=== PATIENT | female | born 1945 | race Caucasian/White ===

== ENCOUNTER 2016-10-30 17:16 | Emergency (ER) | payer MEDICARE, BC ==
[2016-10-30 17:48] LABS: BASOPHILS 0.1 % (0-2); EOSINOPHILS 0.1 % (0-7); HEMATOCRIT 37.6 % (36.0-48.0); HEMOGLOBIN 12.6 g/dL (12-16); IMMATURE GRANULOCYTES 0.4 % (0-5); LYMPHOCYTES 12.2 % (15-50); MCH 31.8 pg (26.0-34.0); MCHC 33.5 g/dL (31.0-37.0); MCV 94.9 fL (80.0-100.0); MEAN PLATELET VOLUME 9.5 fL (7.4-10.4); MONOCYTES 3.5 % (2-11); NEUTROPHILS 83.7 % (40-80); PLATELET COUNT 283 10x3/uL (130-400); RBC 3.96 10x6/uL (4.00-5.40); RDW 13.9 % (11.5-14.5); WBC 10.5 10x3/uL (4.8-10.8)
[2016-10-30 18:24] LABS: ALBUMIN 3.8 g/dL (3.4-5.0); ANION GAP 17.4 mmol/L (8-16); BILIRUBIN - TOTAL 0.7 mg/dL (0.2-1.3); CALCIUM 9.1 mg/dL (8.5-10.1); CARBON DIOXIDE 24.4 mmol/L (21.0-32.0); CREATININE - SERUM 0.9 mg/dL (0.6-1.3); POTASSIUM - SERUM 4.8 mmol/L (3.5-5.1); PROTEIN - SERUM 6.9 g/dL (6.4-8.2)
== END 2016-10-30 19:20 | disposition left against medical advice (07) ==
LOC: D.ER 17:16
PROVIDERS: Emergency Medicine
DX: R10.30 Lower abdominal pain, unspecified (principal)

== ENCOUNTER 2017-08-28 08:00 | Outpatient (CLI) | payer MEDICARE, BC | END 2017-08-28 09:00 | disposition home or self-care (01) | LOC: D.MAMMO 08:00 | DX: Z12.31 Encounter for screening mammogram for malignant neoplasm of breast (principal) ==

== ENCOUNTER 2018-05-12 11:33 | Outpatient (CLI) | payer MEDICARE, BC ==
[~2018-05-12] VITALS: Ht 162.6 cm; Wt 65.9 kg
--- NOTE | ~2018-05-12 | HEMODYNAMI ---
PATIENT:RHIANNON SMITH MEDICAL RECORD: [id number] : 45 LOCATION:[facility] ADMISSION DATE: 05/12/18 Generatedon:05/12/201814:44 Patient name: RHIANNON SMITH Patient #: [id number] SSN: DO B: 1945 Date of study: 05/12/2018 Page: Of Hemodynamic Procedure Report Patient Data Patient Demographics Procedure consent was obtained First Name: RHIANNON Gender: Female Last Name: LUIS : 1945 Middle Initial: L Age: 73 year(s) Patient #: [id number] Race: Unknown Additional ID: [id number] Contact details Address: [address] [place] [address] State: [place] City: [facility] Zip code: [address] Past Medical History Allergies Allergen Reaction Date Comments Reported Other allergy 05/12/2018 LISINOPRIL, PROCAINE Admission Admission Data Admission Date: 05/12/2018 Admission Time: 11:33 Height (in.): 64 BSA: 1.78 (m2) Height (cm.): 162.56 BMI: 27.46 (kg/m2) Weight (lbs.): 160 Weight (kg.): 72.57 Lab Results Lab Result Date: 05/12/2018 Lab Result Time: 0:00 Biochemistry Name Units Result Min Max BUN mg/dl 12 --(-*--)-- 7 18 Creatinine mg/dl 1 --(--*-)-- 0.6 1.3 CBC Name Units Result Min Max Hematocrit % 37.4 *-(----)-- 42 54 Hemoglobin g/dl 12.4 *-(----)-- 13.5 17.5 Procedure Procedure Types Cath Procedure Diagnostic Procedure C [facility] w/Coronaries Aortic Root Angiography Sedation Charges Moderate Sedation up to 15 minutes Peripheral Cath Diagnostic Procedure Polytechnic Teacher Peripheral Procedures Fonru-Cgvlmcw-Knq-Off Procedure Description Procedure Date Procedure Date: 05/12/2018 Procedure Start Time: 14:23 Procedure End Time: 14:38 Procedure Staff Name Function Nick Monzon MD Performing Physician Elysia Sahni RT Monitor Luis Capone RN Nurse Robby Rascon RT Scrub Procedure Data Cath Procedure Fluoroscopy Diagnostic fluoroscopy Total fluoroscopy Time: 3.4 time: 3.4 min min Diagnostic fluoroscopy Total fluoroscopy dose: 223 dose: 223 mGy mGy Contrast Material Contrast Material Type Amount (ml) Isovue 300 138 Entry Location Entry Primary Successful Side Size Upsize Upsize Entry Closure Succes sful Closure Location (Fr) 1 (Fr) 2 (Fr) Remarks Device Remarks Femoral Right 5 Fr Exoseal artery Estimated blood loss: 5 ml Diagnostic catheters Device Type Used For End Catheter Placement MULTIPACK JL 4.0 5Fr Procedure catheter MULTIPACK 3DRC 5Fr Procedure catheter MULTIPACK Pigtail 5 Fr Procedure catheter Procedure Complications No complications Procedure Medications Medication Administration Route Dosage Oxygen etCO2 Nasal cannula 2 l/min Heparin Flush Bag added to field 2 bags (1000units/500ml NS) 0.9% NaCl I.V. 100 ml/hr Lidocaine 2% added to field 20 Fentanyl I.V. 50 mcg Versed I.V. 1 mg Fentanyl I.V. 50 mcg Versed I.V. 1 mg Hemodynamics Rest BSA: 1.78 (m2) HGB: 12.4 (g/dl) O2 Consumption: Estimated: 159.9 (ml/min) O2 Con sumption indexed: Estimated:89.83 (ml/min/m) Heart Rate: 66 (bpm) Pressure Samples Time Site Value (mmHg) Purpose Heart Use Rate(bpm) 14:30 LV 156/22,20 Snapshot 89 Gradients Valve Time Site Site Mean SEP/DFP Peak To Heart Use 1 2 (mmHg) (sec/min) Peak Rate (mmHg) (bpm) Aortic 14:31 LV AO 96 Snapshots Pre Cath Intra NCS Post Cath Vital Signs Time Heart Resp SPO2 etCO2 NIBP (mmHg) Rhythm Pain Sedation Rate (ipm) (%) (mmHg) Status Level (bpm) 14:08:26 83 16 97 0 141/83(111) NSR 0 (11) 10(A) , No pain 14:12:37 74 16 92 0 139/83(116) NSR 0 (11) 10(A) , No pain 14:16:51 73 16 97 0 145/85(120) NSR 0 (11) 10(A) , No pain 14:21:01 72 17 96 0 142/94(128) NSR 0 (11) 10(A) , No pain 14:25:11 70 16 97 0 153/88(116) NSR 0 (11) 9(A) , No pain 14:29:21 101 16 97 0 154/95(128) NSR 0 (11) 9(A) , No pain 14:33:31 99 17 97 0 140/85(108) NSR 0 (11) 9(A) , No pain 14:37:39 74 16 94 0 142/89(115) NSR 0 (11) 9(A) , No pain Medications Time Medication Route Dose Verified Delivered Reason Notes Eff ectiveness by by 14:15:58 Oxygen etCO2 2 Nick Luis Per Nasal l/min [facility] Justin Capone RN physician cannula 14:16:16 Heparin Flush added 2 Nick Luis used for Bag to bags [facility] Justin Capone RN procedure (1000units/500ml field PRATER NS) 14:16:28 0.9% NaCl I.V. 100 Nick Luis Per ml/hr St Justin Capone RN physician 14:16:38 Lidocaine 2% added 20ml Nick Luis for local to vial [facility] Justin Capone RN anesthetic field 14:19:24 Fentanyl I.V. [address] [facility] Justin Capone RN sedation 14:19:30 Versed I.V. 1 mg Nick Smith for [facility] Justin Capone RN sedation 14:23:24 Fentanyl I.V. [address] [facility] Justin Capone RN sedation 14:23:29 Versed I.V. 1 [address] [facility] Justin Capone RN sedation Procedure Log Time Note 13:40:02 Luis Capone RN sent for patient. Start room use. 13:50:03 Time tracking: Regular hours (M-F 7:00 - 5:00) 13:50:07 Plan of Care:Hemodynamics will remain stable., Cardiac rhythm will remain stable., Comfort level will be maintained., Respiratory function will remain adequate., Patient/ family verbilizes understanding of procedure., Procedure tolerated without complication., Recovers from procedure without complications.. 13:58:43 Patient Height : 64 inches 13:58:47 Patient Weight : 160 lbs 13:59:07 Patient allergic to Other allergyLISINOPRIL, PROCAINE 14:05:14 Patient received from Pre/Post Procedure Room to CCL 3 Alert and oriented. Tansferred to table in Supine position. 14:05:15 Warm blankets applied, and camille hugger turned on for patient comfort. 14:05:15 Correct patient and procedure confirmed by team. 14:05:16 Signed procedure consent form obtained from patient. 14:05:17 ECG and BP/O2 sat monitors applied to patient. 14:07:24 Vital chart was started 14:09:43 Baseline sample Acquired. 14:09:51 Rhythm: sinus rhythm 14:09:53 Baseline sample Acquired. 14:09:53 Full Disclosure recording started 14:10:15 H&P Date Dictated: 05/08/2018 Within 30 days and on chart.. 14:10:16 Pre-procedure instructions explained to patient. 14:10:16 Pre-op teaching completed and patient verbalized understanding. 14:10:17 Family in waiting room. 14:10:20 Is patient on blood thinner?No 14:10:22 Patient diabetic? No. 14:10:24 Patient not . Patient is over age 55. 14:10:26 Previous problem with sedation/anesthesia? No ? 14:10:27 Snore? Yes 14:10:27 Sleep apnea? No 14:10:28 Deviated septum? No 14:10:29 Opens mouth fully? Yes 14:10:30 Sticks out tongue? Yes 14:10:32 Airway obstruction? No ? 14:10:33 Dentures? No ? 14:10:36 Pre procedure: right dorsailis pedis pulse 2+ Normal; easily identifiable; not easily obliterated 14:10:39 Pre procedure: left dorsailis pedis pulse 2+ Normal; easily identifiable; not easily obliterated 14:10:41 Patient pain scale 0/10 ?. 14:10:45 IV patent on arrival in right hand with 0.9% NaCl at [facility]. 14:12:07 Lab Result : BUN 12 mg/dl 14:12:07 Lab Result : Creatinine 1 mg/dl 14:12:07 Lab Result : Hemoglobin 12.4 g/dl 14:12:07 Lab Result : Hematocrit 37.4 % 14:12:10 Lab results completed and on chart. 14:12:16 Bilateral groins area was prepped with chlora-prep and draped in sterile fashion 14:12:18 Alarms reviewed by R. N. 14:12:18 Sharps counted by scrub and verified by R.N. 14:12:21 Use device set Femoral Dx 14:12:22 ACIST Syringe (35097) opened to sterile field. 14:12:23 Bag Decanter (2002S) opened to sterile field. 14:12:24 ACIST Hand Control (69091) opened to sterile field. 14:12:24 ACIST Manifold (57902) opened to sterile field. 14:12:25 Tegaderm 4 x 4 (1626W) opened to sterile field. 14:12:26 Medline Cath Pack ([id number]) opened to sterile field. 14:12:27 DIAGNOSTIC WIRE .035 260cm J wire (662185) opened to sterile field. 14:12:28 DIAGNOSTIC Multipack 5Fr catheter set ([id number]) opened to sterile field. 14:12:29 SHEATH 5FR Clyde (EKK071) opened to sterile field. 14:15:58 Oxygen 2 l/min etCO2 Nasal cannula was administered by Luis Capone RN; Per physician; 14:16:16 Heparin Flush Bag (1000units/500ml NS) 2 bags added to field was administered by Luis Capone RN; used for procedure; 14:16:28 0.9% NaCl 100 ml/hr I.V. was administered by Luis Capone RN; Per physician; 14:16:38 Lidocaine 2% 20ml vial added to field was administered by uLis Capone RN; for local anesthetic; 14:18:37 --------ALL STOP TIME OUT------ 14:18:38 Final Timeout: patient, procedure, and site verified with staff and physician. All members of the team are in agreement. 14:18:39 Bilateral groins site verified by team. 14:18:42 Maximum allowable Isovue 300 dose 300ml. Physician notified. (300ml for normal creatinines. For patients with creatinine of 1.7 or higher multiply weight(kg) x 5 divided by creatinine.) 14:18:46 Fire Safety Assessment: A--An alcohol-based skin anteseptic being used preoperatively., C--Open oxygen or nitrous oxide is being used., D--An ESU, laser, or fiber-optic light is being used. 14:18:50 Physical assessment completed. ASA score P 2 - A patient with mild systemic disease as per Nick Monzon MD. 14:18:54 Sedation plan: IV Moderate Sedation Medication:Versed, Fentanyl 14:19:24 Fentanyl 50 mcg I.V. was administered by Luis Capone RN; for sedation; 14:19:30 Versed 1 mg I.V. was administered by Luis Capone RN; for sedation; 14:23:10 Zero performed for pressure channel P1 14:23:18 Procedure started. 14:23:24 Fentanyl 50 mcg I.V. was administered by Luis Capone RN; for sedation; 14::29 Versed 1 mg I.V. was administered by Luis Capone RN; for sedation; 14::31 Local anesthetic to right femoral artery with Lidocaine 2% by Nick Monzon MD.INITIAL ACCESS ONLY 14:24:14 A 5 Fr sheath was inserted into the Right Femoral artery 14:24:20 A MULTIPACK JL 4.0 5Fr catheter was advanced over the wire and used for Procedure. 14:25:42 LCA angiography performed. 14:26:25 Catheter exchanged over wire. 14:26:43 A MULTIPACK 3DRC 5Fr catheter was advanced over the wire and used for Procedure. 14:27:41 RCA angiography performed. 14:27:52 Catheter exchanged over wire. 14:28:50 Procedure type changed to Cath procedure, Diagnostic procedure, LHC, LHC w/Coronaries, Aortic Root Angiography, Sedation Charges, Moderate Sedation up to 15 minutes, Peripheral Cath Diagnostic Procedure, Polytechnic Teacher Peripheral Procedures, Initq-Rugxoua-Cel-Off 14:28:59 A MULTIPACK Pigtail 5 Fr catheter was advanced over the wire and used for Procedure. 14:30:31 LV gram done using HAYNES 14:30:35 Injector settings: Ml/sec: 10, Volume: 20, 14:30:48 LV hemodynamics recorded. 14:31:10 EF : 40 % 14:32:08 Aortic Root visualized 14:32:20 PIGTAIL PULLED DOWN FOR AFRO 14:32:31 Abdominal angiogram w/ runoff was performed. 14:32:50 Left leg runoff performed. 14:33:03 Right leg runoff performed. 14:33:09 Catheter removed. 14:33:46 EXOSEAL 5Fr (EX500) opened to sterile field. 14:34:07 Sheath removed intact; hemostasis achieved with Exoseal to the Right Femoral artery. 14:34:09 Procedure ended.(Physican Out) 14:34:39 Fluoroscopy time 03.40 minutes. 14:34:46 Fluoroscopy dose: 223 mGy 14:34:46 Flurop Dose total: 223 14:34:49 Contrast amount:Isovue 300 138ml. 14:34:51 Sharps counted by scrub and verified by R.N. 14:34:55 Post-op/insertion site Right Femoral artery dressed using a 4 x 4 and Tegaderm. 14:35:27 Post-procedure physical assessment completed. ASA score P 2 - A patient with mild systemic disease as per Nick Monzon MD. 14:35:30 Post procedure rhythm: unchanged. 14:35:33 Estimated blood loss: 5 ml 14:35:34 Post procedure instruction explained to patient.Patient verbalizes understanding. 14:35:35 Patient needs reinforcement of post procedure teaching. 14:38:42 Procedure and supply charges have been captured, reviewed, submitted and are correct. 14:38:44 Procedure Complication : No complications 14:38:46 Vital chart was stopped 14:38:46 See physician's report for complete and final results. 14:38:48 Report given to Pre/Post Procedure Room. 14:38:50 Patient transfered to Pre/Post Procedure Room with Bed. 14:38:52 Procedure ended. 14:38:52 Full Disclosure recording stopped 14:38:56 End room use (Document Last) Device Usage Item Name Manufacture Quantity Catalog Hospital Part Current Minimal L ot# / Number Charge Number Stock Stock Serial# Code ACIST Acist 1 38573 555675 039010 110970 20 Syringe Medical (49552) Systems Inc Bag Microtek 1 304399 37363 503590 5 Decanter Medical Inc. () ACIST Hand Acist 1 04310 599424 659596 146561 5 Control Medical (24120) Systems Inc ACIST Acist 1 41977 295762 103271 967312 5 Manifold Medical (87230) Systems Inc Tegaderm 4 3M 1 1626W 263921 143766 540027 5 x 4 (1626W) Medline Medline 1 [id number] 754397 42108 529355 5 Cath Pack ([id number]) DIAGNOSTIC St Luis M 1 859516 826350 648498 651776 30 WIRE .035 260cm J wire (309119) DIAGNOSTIC Cardinal 1 CK6159 405345 51963 139722 30 Multipack Health 5Fr catheter set (HW9496) SHEATH 5FR Terumo 1 JUJ153 215616 671576 485391 5 Clyde (NPW360) MULTIPACK Cardinal 1 473930 5 JL 4.0 5Fr Health catheter MULTIPACK Cardinal 1 781123 5 3DRC 5Fr Health catheter MULTIPACK Cardinal 1 111497 5 Pigtail 5 Health Fr catheter EXOSEAL 5Fr Cardinal 1 EX500 132562 384383 220406 10 (EX500) Health Signature Audit [place] Stage Time Signature Unsigned Intra-Procedure 05/12/2018 Elysia Sahni 2:44:48 PM RT(R) Signatures Monitor : Elysia Sahni Signature : RT Date : Time : [place] [id number] [place] [address]
--- NOTE | ~2018-05-12 | OP ---
PATIENT NAME: RHIANNON SMITH MEDICAL RECORD: [id number] :45 LOCATION:D.CAT ADMISSION DATE: SURGEON: ERIN ALLRED MD DATE OF OPERATION: 05/12/2018 PROCEDURES: Catheterization, aortic root, AFRO, right femoral artery approach. CATHETERS: A 5-Norwegian sheath, 5/4 left and right Negrito, 5/4 pig. The procedure was well tolerated and the patient was returned to reina. Sheath was removed. ExoSeal device was placed. FINDINGS: Left ventriculography in 30-degree HAYNES view shows mild global hypo. LV function is mildly reduced at 45% to 50%. AORTIC ROOT INJECTION: Aortic root injection performed in the GERTRUDIS projection. This shows dilated aortic root as well as 4+ AI. CORONARY ANATOMY: LEFT MAIN: Left main is free of disease. LAD: Free of disease in the diagonal system. CIRCUMFLEX: Left dominant system. Free of disease. RIGHT CORONARY ARTERY: Rudimentary. Free of disease. The catheters were withdrawn distally to level of the renal arteries and AFRO was performed of abdominal aorta. This shows no evidence of dilatation and no evidence of aneurysm. PERIPHERAL ANATOMY: RIGHT: Right external and internal iliacs are both patent and free of disease. Femoral system on the right; right superficial, common, and deep femoral are all free of disease. There is good 2-vessel runoff distally. LEFT: Left internal and external iliacs are free of disease. Left femoral system; common, deep, and superficial all free of disease with 2-vessel runoff. IMPRESSION: Severe AI. No evidence of coronary artery disease. No evidence of peripheral vascular disease. Symptomology appears to be all from valvular pathology. Dr. Francisco is consulted for valve replacement, possible Bentall in the same setting. TRANSINT:[id number] Voice Confirmation ID: [id number] DOCUMENT ID: [id number] ERIN ALLRED MD CC: [id number] DICTATION DATE: 05/12/18 1453 PILLOWCASE TURNER: 05/12/18 1759 DEP CLI 05/12/18 [place] [id number] [place] [id number]
[2018-05-12] MEDS ORDERED: REXULTI1 MG PO (11:59)
[2018-05-12] MEDS ORDERED: TOPROL XL50 MG PO (11:59)
[2018-05-12] MEDS ORDERED: DIOVAN40 MG PO (11:59)
[2018-05-12] MEDS ORDERED: PROPAFENONE HC150 MG PO (12:00)
[2018-05-12] MEDS ORDERED: CYMBALTA60 MG PO (12:00)
[2018-05-12] MEDS ORDERED: KLONOPIN0.5 MG PO (12:00)
[2018-05-12] MEDS ORDERED: REMERON15 MG PO (12:01)
[2018-05-12] MEDS ORDERED: SYNTHROID200 MC1 PO (12:01)
[2018-05-12 12:11] VITALS: BP 147/82; Ht 162.6 cm; Wt 65.9 kg
[2018-05-12 12:48] LABS: BASOPHILS 0.6 % (0-2); EOSINOPHILS 0.1 % (0-7); HEMATOCRIT 37.4 % (36.0-48.0); HEMOGLOBIN 12.4 g/dL (12-16); IMMATURE GRANULOCYTES 0.6 % (0-5); LYMPHOCYTES 32.9 % (15-50); MCH 31.2 pg (26.0-34.0); MCHC 33.2 g/dL (31.0-37.0); MCV 94.2 fL (80.0-100.0); MONOCYTES 11.8 % (2-11); PLATELET COUNT 296 10x3/uL (130-400); RBC 3.97 10x6/uL (4.00-5.40); RDW 12.8 % (11.5-14.5)
[2018-05-12 13:06] LABS: ANION GAP 15.7 mmol/L (8-16); CALCIUM 8.5 mg/dL (8.5-10.1); CARBON DIOXIDE 21.7 mmol/L (21.0-32.0); POTASSIUM - SERUM 4.4 mmol/L (3.5-5.1)
--- NOTE | 2018-05-12 15:15 | NUR ---
RIGHT GROIN DRESSING C/D/I. NO S/S OF HEMATOMA NOTED. RIGHT PEDAL PULSE PALPABLE. NO COMPLAINTS OF PAIN. DENIES NAUSEA.
--- NOTE | 2018-05-12 15:45 | NUR ---
PT RESTING QUIETLY, R GROIN DRESSING REMAINS CDI NO BLEEDING OR SWELLING NOTED. PEDAL PULSES PALPABLE. VSS, PT DENIES PAIN OR NEEDS.
--- NOTE | 2018-05-12 16:02 | NUR ---
PT RESTING QUIETLY, SIPS OF WATER GIVEN NO OTHER REQUESTS. R GROIN CDI NO BLEEDING OR SWELLING NOTED. R LEG PINK AND WARM, PEDAL PULSES PALPABLE. VSS. CALL LIGHT IN REACH.
[2018-05-12] MEDS ORDERED: BAYER CHEWABLE81 MG PO (16:08)
[2018-05-12] MEDS ORDERED: PLAVIX75 MG PO (16:08)
--- NOTE | 2018-05-12 17:19 | NUR ---
1615 DRESSING TO RIGHT GROIN IS CDI, AREA IS SOFT AND NONTENDER. PEDAL PULSES PALPABLE. VSS, HOB ELEVATED AND SANDWICH SERVED. AT BEDSIDE. CALL LIGHT IN REACH. 1635 DRESSING REMAINS CDI, AREA IS SOFT AND NONTENDER, PEDAL PULSES PALPABLE. 1650 IV DC'D WITH CATH INTACT. DC INSTRUCTIONS REVIEWED WITH PT AND WHO VERBALIZE UNDERSTANDING. PT DRESSING FOR DC WITH ASSIST. 1700 PT HAS DRESSED FOR DC TO HOME. ESCORTED PT TO BATHROOM AND PT VOIDED QS. DRESSING REMAINS CDI. PT ESCORTED TO PRIVATE AUTO VIA WC BY NURSE WITH DRIVING HER HOME.
== END 2018-05-12 17:00 | disposition home or self-care (01) ==
LOC: D.CATH 11:33
PROVIDERS: ATTEND Internal Medicine Interventional Cardiology
DX: I35.1 Nonrheumatic aortic (valve) insufficiency (principal); R06.00 Dyspnea, unspecified; Z01.812 Encounter for preprocedural laboratory examination

== ENCOUNTER → 2018-05-29 08:12 | Outpatient (CLI) | payer MEDICARE, BC ==
[2018-05-12 12:11] VITALS: BMI 24.9
[~2018-05-29 08:12] MED LIST: BAYER CHEWABLE81 MG PO; CYMBALTA60 MG PO; DIOVAN40 MG PO; KLONOPIN0.5 MG PO; PLAVIX75 MG PO; PROPAFENONE HC150 MG PO; REMERON15 MG PO; REXULTI1 MG PO; SYNTHROID200 MC1 PO; TOPROL XL50 MG PO
== END | disposition home or self-care (01) ==
LOC: D.US 08:12
PROVIDERS: ATTEND Thoracic Surgery (Cardiothoracic Vascular Surgery)
DX: I71.4 Abdominal aortic aneurysm, without rupture (principal)

== ENCOUNTER 2018-06-06 10:41 | Inpatient (IN) | payer MEDICARE, BC ==
[~2018-06-06] VITALS: Ht 162.6 cm; Wt 76.1 kg
--- NOTE | ~2018-06-06 | TEE ---
PATIENT:RHINANON SMITH MEDICAL RECORD: [id number] LOCATION:[place] [address] AGE OF PATIENT: 73 ADMISSION DATE: 06/10/18 SEX: F REFERRING PHYSICIAN: INTERPRETING PHYSICIAN: ERIN ALLRED MD TRANSESOPHAGEAL ECHOCARDIOGRAM Date: 06/10/18 JAGDISH CHARGE Y INDICATIONS: AVR PREMEDICATIONS: PATIENT'S RESPONSE PROCEDURE DOPPLER MEASUREMENTS: LVIT LA 3.8 PA RA LVOT 2.1 RVOT Asc. Ao AV Gradient Peak 2.6 AV Mean 1.3 AV Area 3.3 MV Gradient Peak MV Mean MV Area INTERPRETATION: LVd: 5.4 cm LVs: 3.8 cm Doppler: 2-D: ASCENDING AO: 4.1 cm COLOR FLOW DOPPLER NORMAL SALINE STUDY: MISCELLANOUS: DIAGNOSIS: PLAN: Scheduling Assistant:3 Dr. Degroot Starch Factory Laborer: Drew DEE COMMENTS: DATE OF SERVICE: 06/10/2018 INTRAOPERATIVE TRANSESOPHAGEAL NOTE Preoperatively, shows global hypokinesis. Severe AI. Moderate MR. EF 30% to 35%. Postoperatively, EF still 30% to 35%. Prosthetic aortic valve is noted with no significant regurgitation. Ulrd-hd-[id number] MR. TRANSINT:[id number] Voice Confirmation ID: [id number] DOCUMENT ID: [id number] TRANSESOPHAGEAL ECHOCARDIOGRAM REPORT [id number] RHIANONN SMITH ERIN ALLRED MD CC: [id number] DICTATION DATE: 06/10/18 162 PANELBOARD ASSEMBLER: 06/10/182003 ADM IN [facility] [address] [place] [address]
[2018-06-06] MEDS ORDERED: HYDROXYZINE HCL50 MG PO (12:37)
[2018-06-06] MEDS ORDERED: TURMERIC CURCUMIN PO (12:39)
[2018-06-06] MEDS ORDERED: MELATONIN10 M1 PO (12:39)
[2018-06-06] MEDS ORDERED: VITAMIN B-121000 MCG IM (12:40)
[2018-06-06] MEDS ORDERED: GLUCOSAMINE HC500 MG PO (12:41)
[2018-06-06 14:32] LABS: BASOPHILS 0.5 % (0-2); EOSINOPHILS 0.1 % (0-7); HEMATOCRIT 36.9 % (36.0-48.0); HEMOGLOBIN 12.1 g/dL (12-16); IMMATURE GRANULOCYTES 0.5 % (0-5); LYMPHOCYTES 30.6 % (15-50); MCH 30.9 pg (26.0-34.0); MCHC 32.8 g/dL (31.0-37.0); MCV 94.1 fL (80.0-100.0); MEAN PLATELET VOLUME 9.7 fL (7.4-10.4); MONOCYTES 10.3 % (2-11); PLATELET COUNT 291 10x3/uL (130-400); RBC 3.92 10x6/uL (4.00-5.40); RDW 13.5 % (11.5-14.5); WBC 8.7 10x3/uL (4.8-10.8)
[2018-06-06 14:55] LABS: APTT 27.8 SECONDS (22.8-39.4); INR 1.1 (0.85-1.17); PROTIME 13.7 SECONDS (11.6-15.0)
[2018-06-06 14:57] LABS: APPEARANCE CLEAR (CLEAR); BILIRUBIN NEGATIVE (NEGATIVE); COLOR YELLOW (YELLOW); GLUCOSE NEGATIVE (NEGATIVE); KETONE NEGATIVE (NEGATIVE); NITRITE NEGATIVE (NEGATIVE); PROTEIN NEGATIVE (NEGATIVE); UROBILINOGEN NORMAL (NORMAL)
[2018-06-06 15:17] LABS: ALBUMIN 3.6 g/dL (3.4-5.0); ANION GAP 12.9 mmol/L (8-16); BILIRUBIN - TOTAL 0.45 mg/dL (0.2-1.3); CALCIUM 8.4 mg/dL (8.5-10.1); CARBON DIOXIDE 24.8 mmol/L (21.0-32.0); PHOSPHOROUS 4.4 mg/dL (2.5-4.9); POTASSIUM - SERUM 4.7 mmol/L (3.5-5.1); PROTEIN - SERUM 7.1 g/dL (6.4-8.2); T4 THYROXIN - FREE 0.89 ng/dL (0.76-1.46); THYROID STIMULATING HORMONE 8.22 uIU/mL (0.36-3.74); URIC ACID 4.7 mg/dL (2.6-7.2)
[2018-06-10] VITALS (50 sets, daily range): BP systolic 103–138; BP diastolic 51–70; BMI 25.8; BMI 28.2
[2018-06-10 11:43] LABS: INR 1.71 (0.85-1.17); PROTIME 19.5 SECONDS (11.6-15.0)
[2018-06-10 12:49] LABS: BASOPHILS 0.3 % (0-2); EOSINOPHILS 0 % (0-7); HEMATOCRIT 25.6 % (36.0-48.0); HEMOGLOBIN 8.6 g/dL (12-16); IMMATURE GRANULOCYTES 0.4 % (0-5); LYMPHOCYTES 14.8 % (15-50); MCH 30.5 pg (26.0-34.0); MCHC 33.6 g/dL (31.0-37.0); MCV 90.8 fL (80.0-100.0); MONOCYTES 7.5 % (2-11); RBC 2.82 10x6/uL (4.00-5.40); RDW 14.3 % (11.5-14.5); WBC 6.7 10x3/uL (4.8-10.8)
[2018-06-10 12:52] LABS: PLATELET COUNT 184 10x3/uL (130-400)
[2018-06-10 13:01] LABS: INR 1.39 (0.85-1.17); PROTIME 16.5 SECONDS (11.6-15.0)
[2018-06-10 16:46] LABS: INR 1.32 (0.85-1.17); PROTIME 15.8 SECONDS (11.6-15.0)
[2018-06-11] VITALS (57 sets, daily range): BP systolic 104–164; BP diastolic 48–99; Ht 162.6 cm; Wt 76.1 kg
[2018-06-11 06:26] LABS: ALBUMIN 2.9 g/dL (3.4-5.0); ANION GAP 17.8 mmol/L (8-16); BILIRUBIN - TOTAL 0.65 mg/dL (0.2-1.3); CALCIUM 7.9 mg/dL (8.5-10.1); CARBON DIOXIDE 23.5 mmol/L (21.0-32.0); CREATININE - SERUM 1.1 mg/dL (0.6-1.3); POTASSIUM - SERUM 4.3 mmol/L (3.5-5.1); PROTEIN - SERUM 5.5 g/dL (6.4-8.2)
[2018-06-11 06:39] LABS: HEMATOCRIT 25.5 % (36.0-48.0); HEMOGLOBIN 8.6 g/dL (12-16); MCH 30.7 pg (26.0-34.0); MCHC 33.7 g/dL (31.0-37.0); MCV 91.1 fL (80.0-100.0); MEAN PLATELET VOLUME 9.7 fL (7.4-10.4); RBC 2.8 10x6/uL (4.00-5.40)
[2018-06-11 06:44] LABS: WBC 9.7 10x3/uL (4.8-10.8)
--- NOTE | 2018-06-11 09:31 | OP ---
PATIENT NAME: RHIANNON SMITH MEDICAL RECORD: [id number] :45 LOCATION:.[facility] [id number] ADMISSION DATE:06/10/18 SURGEON: BISHNU COOK MD DATE OF OPERATION: 06/10/2018 SURGEON: Bishnu Cook MD LEGAL INSTRUMENTS EXAMINER: Gonzalez Ceja. PROCEDURES PERFORMED: 1. Aortic valve replacement (25-mm [place] Magna pericardial bioprosthesis). 2. Repair of noncoronary sinus of Valsalva aneurysm. 3. Pulmonary vein radiofrequency ablation. 4. Left atrial appendage occlusion device application. PREOPERATIVE DIAGNOSES: Aortic insufficiency, sinus of Valsalva aneurysm, atrial fibrillation, paroxysmal. POSTOPERATIVE DIAGNOSES: Aortic insufficiency, sinus of Valsalva aneurysm, atrial fibrillation, paroxysmal. ANESTHESIA: General endotracheal anesthesia. ESTIMATED BLOOD LOSS: Total cardiopulmonary bypass with Cell Saver retransfusion, 2 packed red blood cells, 2 platelets, 2 FFP. SPECIMENS: 1. Aortic valve leaflets. 2. Section of the wall of the noncoronary sinus of Valsalva resected for aneurysm repair. CONDITION: Critical. DISPOSITION: CV ICU. OPERATIVE FINDINGS: 1. Transesophageal echocardiography confirmed severe aortic insufficiency with dilated coronary sinuses, 2+ mitral regurgitation, 35-40% ejection fraction, unchanged after separation from cardiopulmonary bypass, but no perivalvular leak. 2. Ascending aorta normal wall thickness, most of the sinus enlargement was in the noncoronary sinus allowing primary excision and pledgeted repair. 3. Normal-appearing valve apparatus without significant annular calcification. 4. Broad-based left atrial appendage. 5. Bilateral pulmonary vein radiofrequency ablation. OPERATIVE INDICATION: Aortic insufficiency, intermittent atrial fibrillation with rapid ventricular response and dilated aortic sinuses. DESCRIPTION OF PROCEDURE: The patient brought to the operative suite. General anesthesia was obtained. The patient was prepped and draped. Mediastinotomy incision was made. The subcutaneous tissue was divided by electrocautery. The sternum was divided with a saw. Hemostasis was ensured. Pericardium was opened. Heparin was given. Aorta was cannulated. Dual stage venous cannula was inserted. After activated clotting time was broadly elevated, the patient OPERATIVE REPORT [id number] RHIANNON SMITH was placed on cardiopulmonary bypass. The pulmonary veins were encircled and pulmonary vein radiofrequency ablation was performed using the AtriCure device. A 45-mm left atrial appendage occlusion device was placed. The patient was cooled. The right superior pulmonary vein was cannulated for the left ventricular vent. Retrograde cardioplegic cannula was inserted. Crossclamp was placed. Cardioplegia was given retrograde. Aortotomy was performed and extended down into the noncoronary sinus. Direct ostial cardioplegia was given into the left main and then the intermittent retrograde cardioplegia was given. The valve was inspected. Leaflets were removed. Pledgeted sutures were placed from ventricular to aortic side and the valve was sized to 25-mm. Valve sutures were placed through the valve sewing ring and the valve was carefully lowered in place with each suture tied. The section of the wall of the noncoronary was excised to allow normal anatomic closure and the felt pledgets were used for external buttress primary closure included in the line of the aortotomy. With the patient in steep Trendelenburg position, the left ventricular apex was de-aired, cross-clamp was removed. A vent site was made with a 14-gauge angiocatheter in the anterior ascending aorta and transesophageal echocardiography was used for assistance and de-airing. The patient was defibrillated and resumed to a spontaneous rhythm. Atrial and ventricular pacing wires were placed. The patient was in a good rhythm. Retrograde cardioplegia cannula was removed, site was oversewn. The left ventricular vent was removed. Hemostasis was assured and the patient was weaned from cardiopulmonary bypass with stable. The patient was decannulated. Atrial site was oversewn with pledgeted Prolene sutures. Ascending aortic cannulation site oversewn with pledgeted Prolene sutures. Protamine was given. Thorough irrigation was undertaken. Drains were placed in the mediastinum. Pericardial fat was approximated over the aorta. Sternum was closed with wires. Fascia was closed. Subcutaneous tissue was closed. Skin was closed. Dermabond was placed. Needle and sponge counts were reported as correct and the patient was taken to the ICU in stable condition. TRANSINT:[id number] Voice Confirmation ID: [id number] DOCUMENT ID: [id number] BISHNU COOK MD at 0931 CC: MICHELLE AGARWAL MD and ERIN ALLRED MD [id number] DICTATION DATE: 06/10/18 1433 FOOD SERVICE AMBASSADOR: 06/10/18 1609 ADM IN [place] [id number] [place] [address]
[2018-06-12] VITALS (19 sets, daily range): BP systolic 119–156; BP diastolic 73–98
[2018-06-12 06:03] LABS: MCH 30.3 pg (26.0-34.0); MCHC 33.3 g/dL (31.0-37.0); MCV 90.9 fL (80.0-100.0); MEAN PLATELET VOLUME 9.7 fL (7.4-10.4); RDW 15.1 % (11.5-14.5)
[2018-06-12 06:05] LABS: HEMATOCRIT 32.1 % (36.0-48.0); HEMOGLOBIN 10.7 g/dL (12-16); RBC 3.53 10x6/uL (4.00-5.40); WBC 15.7 10x3/uL (4.8-10.8)
[2018-06-12 06:19] LABS: ALBUMIN 2.8 g/dL (3.4-5.0); ANION GAP 12.1 mmol/L (8-16); BILIRUBIN - TOTAL 0.6 mg/dL (0.2-1.3); CALCIUM 7.7 mg/dL (8.5-10.1); CARBON DIOXIDE 28.3 mmol/L (21.0-32.0); CREATININE - SERUM 0.9 mg/dL (0.6-1.3); POTASSIUM - SERUM 4.4 mmol/L (3.5-5.1)
[2018-06-13] VITALS (21 sets, daily range): BP systolic 114–150; BP diastolic 52–91
[2018-06-13 06:04] LABS: HEMATOCRIT 31.2 % (36.0-48.0); HEMOGLOBIN 10.2 g/dL (12-16); MCH 30.4 pg (26.0-34.0); MCHC 32.7 g/dL (31.0-37.0); MEAN PLATELET VOLUME 9.9 fL (7.4-10.4); RBC 3.36 10x6/uL (4.00-5.40); RDW 14.8 % (11.5-14.5); WBC 14.6 10x3/uL (4.8-10.8)
[2018-06-13 06:15] LABS: ALBUMIN 2.6 g/dL (3.4-5.0); ANION GAP 9.8 mmol/L (8-16); BILIRUBIN - TOTAL 0.73 mg/dL (0.2-1.3); CALCIUM 8.1 mg/dL (8.5-10.1); CARBON DIOXIDE 29.9 mmol/L (21.0-32.0); CREATININE - SERUM 0.8 mg/dL (0.6-1.3); PROTEIN - SERUM 6.2 g/dL (6.4-8.2)
[2018-06-13 06:21] LABS: POTASSIUM - SERUM 3.7 mmol/L (3.5-5.1)
[2018-06-13 06:48] LABS: MCV 92.9 fL (80.0-100.0)
--- NOTE | 2018-06-13 18:48 | MORECARE ---
CASE MANAGEMENT DISCHARGE SUMMARY PATIENT: RHIANNON SMITH UNIT: [id number] ADM DATE: 06/10/18 AGE: 73 : [birth year] SEX: F ROOM/BED: [facility] AUTHOR: MAMTA VALDES PHYSICIAN: REFERRING PHYSICIAN: HAKAN COOK MD DATE OF SERVICE: 06/13/18 Discharge Plan Patient Name: [facility]HIANNON SMITH [facility] [facility] 1945 Planned Disposition: Home Anticipated Discharge Date: Discharge Date: Expected LOS: Initial Reviewer: [email or web address] Initial Review Date: 06/12/2018 Generated: 06/13/18 7:48 pm DCPIA - Discharge Planning Initial Assessment Updated by [email or web address]: Tereza Kumar on 06/13/18 6:48 pm * Is the patient Alert and Oriented? Yes * How many steps to enter\exit or inside your home? * PCP STEFANO * [facility] * Preadmission Environment Home with Family * ADLs Independent * Equipment Walker * List name and contact numbers for known caregivers / representatives who currently or will assist patient after discharge: MARIO SMITH - [facility] - [phone] * Verbal permission to speak to the caregivers and representatives has been obtained from the patient. N/A * Community resources currently utilized None * Additional services required to return to the preadmission environment? No * Can the patient safely return to the preadmission environment? Yes * Has this patient been hospitalized within the prior 30 days at any hospital? No Patient Name: RHIANNON SMITH Page [id number] at 1848 All edits/amendments must be made on the electronic document DICTATION DATE: 06/13/181847 DOOR CLAMPER: JUAN FRANCISCO 06/13/181847 RPT#: [id number] DC DATE: STATUS: ADM IN [facility] [address] [place] [address] END OF REPORT
--- NOTE | 2018-06-13 18:55 | MORECARE ---
CASE MANAGEMENT DISCHARGE SUMMARY PATIENT: RHIANNON SMITH UNIT: [id number] ADM DATE: 06/10/18 AGE: 73 : 45 SEX: F ROOM/BED: [facility] AUTHOR: KEISHA,DOC PHYSICIAN: REFERRING PHYSICIAN: HAKAN COOK MD DATE OF SERVICE: 06/13/18 Discharge Plan Patient Name: RHIANNON SMITH Facility: [facility]:[place] : 1945 Planned Disposition: Home Anticipated Discharge Date: Discharge Date: Expected LOS: Initial Reviewer: [email or web address] Initial Review Date: 06/12/2018 Generated: 06/13/18 7:55 pm Comments DCP- Discharge Planning Updated by [email or web address]: Tereza Kumar on 06/13/18 5:[address] CM met with patient to see if thought she would need Rehab upon discharge. Patient states that she feels that she can discharge home. She states her will be at home with her and denies any need for Rehab. CM will continue to follow and assist as needed with discharge planning / needs. DCP- Discharge Planning Updated by [email or web address]: Tereza Kumar on 06/13/18 5:[address] LATE ENTRY 06/12/18 @ 1820 Patient Name: RHIANNON SMITH Admission Status: Elective Accout number: [id number] Admission Date: 06-10-2018 : 1945 Admission Diagnosis:NONRHEUMATIC AORTIC (VALVE) STENOSIS Attending: HAKAN COOK Current LOS: 3 Anticipated DC Date: Planned Disposition: Home Primary Insurance: MEDICARE A & B Discharge Planning Comments: CM met with patient at bedside. Patient states she lives at home with her and plans to return to their home upon discharge. Patient denies any discharge needs at this time. CM will continue to follow and assist as needed with discharge planning / needs. Agency Owner: Tereza Kumar DCPIA - Discharge Planning Initial Assessment Updated by [email or web address]: Tereza Kumar on 06/13/18 6:48 pm * Is the patient Alert and Oriented? Yes * How many steps to enter\exit or inside your home? * PCP STEFANO * [facility] * Preadmission Environment Home with Family * ADLs Independent * Equipment Walker * List name and contact numbers for known caregivers / representatives who currently or will assist patient after discharge: MARIO SMITH - - [phone] * Verbal permission to speak to the caregivers and representatives has been obtained from the patient. N/A * Community resources currently utilized None * Additional services required to return to the preadmission environment? No * Can the patient safely return to the preadmission environment? Yes * Has this patient been hospitalized within the prior 30 days at any hospital? No Last DP export: 06/13/18 5:48 p Patient Name: RHIANNON SMITH Page 11236 at 1855 All edits/amendments must be made on the electronic document DICTATION DATE: 06/13/181854 PROFESSOR OF BUSINESS: JUAN FRANCISCO 06/13/181854 RPT#: [id number] DC DATE: STATUS: ADM IN [facility] [address] [place] [address] END OF REPORT
[2018-06-14] VITALS (23 sets, daily range): BP systolic 109–145; BP diastolic 68–90
[2018-06-14 05:32] LABS: HEMATOCRIT 28.3 % (36.0-48.0); HEMOGLOBIN 9.2 g/dL (12-16); MCHC 32.5 g/dL (31.0-37.0); MCV 92.2 fL (80.0-100.0); MEAN PLATELET VOLUME 9.9 fL (7.4-10.4); RBC 3.07 10x6/uL (4.00-5.40); RDW 14.2 % (11.5-14.5)
[2018-06-14 05:40] LABS: WBC 8.1 10x3/uL (4.8-10.8)
[2018-06-14 05:47] LABS: ALBUMIN 2.2 g/dL (3.4-5.0); ANION GAP 8.8 mmol/L (8-16); BILIRUBIN - TOTAL 0.65 mg/dL (0.2-1.3); CALCIUM 7.7 mg/dL (8.5-10.1); CARBON DIOXIDE 29.7 mmol/L (21.0-32.0); CREATININE - SERUM 0.8 mg/dL (0.6-1.3); POTASSIUM - SERUM 3.5 mmol/L (3.5-5.1); PROTEIN - SERUM 5.6 g/dL (6.4-8.2)
[2018-06-15] VITALS (18 sets, daily range): BP systolic 122–153; BP diastolic 73–95
[2018-06-15 05:49] LABS: HEMATOCRIT 28.8 % (36.0-48.0); HEMOGLOBIN 9.5 g/dL (12-16); MCH 30.2 pg (26.0-34.0); MCV 91.4 fL (80.0-100.0); MEAN PLATELET VOLUME 9.6 fL (7.4-10.4); RBC 3.15 10x6/uL (4.00-5.40); RDW 14.3 % (11.5-14.5); WBC 7.2 10x3/uL (4.8-10.8)
[2018-06-15 06:09] LABS: ALBUMIN 2.4 g/dL (3.4-5.0); ANION GAP 8.6 mmol/L (8-16); BILIRUBIN - TOTAL 0.54 mg/dL (0.2-1.3); CALCIUM 8.4 mg/dL (8.5-10.1); CARBON DIOXIDE 30.9 mmol/L (21.0-32.0); CREATININE - SERUM 0.8 mg/dL (0.6-1.3); POTASSIUM - SERUM 3.5 mmol/L (3.5-5.1)
[2018-06-15] MEDS ORDERED: AMIODARONE HCL200 MG PO (17:55)
[2018-06-15] MEDS ORDERED: HEMOCYTE PLUS C1 CAP PO (17:55)
[2018-06-15] MEDS ORDERED: PERCOCET 5-3251 TAB PO (17:56)
[2018-06-15] MEDS ORDERED: ASPIRIN EC81 M1 PO (17:56)
[2018-06-15] MEDS ORDERED: LOPRESSOR25 MG PO (17:56)
[2018-06-15] MEDS ORDERED: COLACE100 MG PO (17:57)
--- NOTE | 2018-06-16 12:15 | MORECARE ---
CASE MANAGEMENT DISCHARGE SUMMARY PATIENT: RHIANNON SMITH UNIT: [id number] ADM DATE: 06/10/18 AGE: 73 : 45 SEX: F [facility]: [facility] AUTHOR: KEISHA,DOC PHYSICIAN: REFERRING PHYSICIAN: HAKAN COOK MD DATE OF SERVICE: 06/16/18 Discharge Plan Patient Name: RHIANNON SMITH Facility: [facility]:[place] : 1945 Planned Disposition: Home Anticipated Discharge Date: Discharge Date: 06/15/2018 Expected LOS: Initial Reviewer: [email or web address] Initial Review Date: 06/12/2018 Generated: 06/16/18 1:14 pm Comments DCP- Discharge Planning Updated by [email or web address]: Tereza Kumar on 06/13/18 5:[address] CM met with patient to see if thought she would need Rehab upon discharge. Patient states that she feels that she can discharge home. She states her will be at home with her and denies any need for Rehab. CM will continue to follow and assist as needed with discharge planning / needs. DCP- Discharge Planning Updated by [email or web address]: Tereza Kumar on 06/13/18 5:[address] LATE ENTRY 06/12/18 @ 1820 Patient Name: RHIANNON SMITH Admission Status: Elective Accout number: [id number] Admission Date: 06-10-2018 : 1945 Admission Diagnosis:NONRHEUMATIC AORTIC (VALVE) STENOSIS Attending: HAKAN COOK Current LOS: 3 Anticipated DC Date: Planned Disposition: Home Primary Insurance: MEDICARE A & B Discharge Planning Comments: CM met with patient at bedside. Patient states she lives at home with her and plans to return to their home upon discharge. Patient denies any discharge needs at this time. CM will continue to follow and assist as needed with discharge planning / needs. Displayer Merchandise: Tereza Kumar DCPIA - Discharge Planning Initial Assessment Updated by [email or web address]: Tereza Kumar on 06/13/18 6:48 pm * Is the patient Alert and Oriented? Yes * How many steps to enter\exit or inside your home? * PCP STEFANO * [facility] * Preadmission Environment Home with Family * ADLs Independent * Equipment Walker * List name and contact numbers for known caregivers / representatives who currently or will assist patient after discharge: MARIO SMITH - - [phone] * Verbal permission to speak to the caregivers and representatives has been obtained from the patient. N/A * Community resources currently utilized None * Additional services required to return to the preadmission environment? No * Can the patient safely return to the preadmission environment? Yes * Has this patient been hospitalized within the prior 30 days at any hospital? No Last DP export: 06/13/18 5:55 p Patient Name: RHIANNON SMITH Page 13234 at 1215 All edits/amendments must be made on the electronic document DICTATION DATE: 06/16/18 1214 STUDY ABROAD COORDINATOR: JUAN FRANCISCO 06/16/18 1214 RPT#: [id number] DC DATE:06/15/18 STATUS: DIS IN [facility] [address] [place] [address] END OF REPORT
== END 2018-06-15 18:57 | disposition home or self-care (01) | DRG 220 ==
LOC: D.SDCHOLD 06-10 05:00 → D.CVICU 06-10 05:00 → D.SDCHOLD 06-10 07:30 → D.CVICU 06-10 09:04
PROVIDERS: ADMIT Thoracic Surgery (Cardiothoracic Vascular Surgery); ATTEND Thoracic Surgery (Cardiothoracic Vascular Surgery)
PROC: 02QX0ZZ Repair Thoracic Aorta, Ascending/Arch, Open Approach (ICD-10-PCS; 2018-06-10)
PROC: B24BZZ4 Ultrasonography of Heart with Aorta, Transesophageal (ICD-10-PCS; 2018-06-10)
PROC: 5A1221Z Performance of Cardiac Output, Continuous (ICD-10-PCS; 2018-06-10)
PROC: 02L70ZK Occlusion of Left Atrial Appendage, Open Approach (ICD-10-PCS; 2018-06-10)
PROC: 02RF08Z Replacement of Aortic Valve with Zooplastic Tissue, Open Approach (ICD-10-PCS; principal; 2018-06-10 07:30)
PROC: 02580ZZ Destruction of Conduction Mechanism, Open Approach (ICD-10-PCS; 2018-06-10 07:30)
DX: I35.0 Nonrheumatic aortic (valve) stenosis (principal); I50.22 Chronic systolic (congestive) heart failure; D62 Acute posthemorrhagic anemia; I11.0 Hypertensive heart disease with heart failure; I48.0 Paroxysmal atrial fibrillation; E03.9 Hypothyroidism, unspecified

== ENCOUNTER → 2018-07-07 14:41 | Outpatient (CLI) | payer MEDICARE, BC ==
[2018-06-11 09:40] VITALS: BMI 28.6
[~2018-07-07 14:41] MED LIST changes: +AMIODARONE HCL200 MG PO; +ASPIRIN EC81 M1 PO; +COLACE100 MG PO; +GLUCOSAMINE HC500 MG PO; +HEMOCYTE PLUS C1 CAP PO; +HYDROXYZINE HCL50 MG PO; +LOPRESSOR25 MG PO; +MELATONIN10 M1 PO; +PERCOCET 5-3251 TAB PO; +TURMERIC CURCUMIN PO; +VITAMIN B-121000 MCG IM
[2018-07-07 15:17] LABS: HEMATOCRIT 37.1 % (36.0-48.0); HEMOGLOBIN 12.6 g/dL (12-16); MCH 30.8 pg (26.0-34.0); MCV 90.7 fL (80.0-100.0); RBC 4.09 10x6/uL (4.00-5.40); RDW 13.7 % (11.5-14.5); WBC 10.9 10x3/uL (4.8-10.8)
[2018-07-07 15:47] LABS: ALBUMIN 3.4 g/dL (3.4-5.0); ANION GAP 18.3 mmol/L (8-16); BILIRUBIN - TOTAL 0.25 mg/dL (0.2-1.3); CALCIUM 9.5 mg/dL (8.5-10.1); CARBON DIOXIDE 22.1 mmol/L (21.0-32.0); CREATININE - SERUM 1.2 mg/dL (0.6-1.3); POTASSIUM - SERUM 4.4 mmol/L (3.5-5.1); PROTEIN - SERUM 8.3 g/dL (6.4-8.2)
== END | disposition home or self-care (01) ==
LOC: D.LAB 14:41
PROVIDERS: ATTEND Thoracic Surgery (Cardiothoracic Vascular Surgery)
DX: J91.8 Pleural effusion in other conditions classified elsewhere (principal); D64.9 Anemia, unspecified

== ENCOUNTER → 2018-08-04 11:36 | Outpatient (CLI) | payer MEDICARE, BC ==
[2018-06-11 09:40] VITALS: BMI 28.6
== END | disposition home or self-care (01) ==
LOC: D.US 06-06 10:30
PROVIDERS: ATTEND Thoracic Surgery (Cardiothoracic Vascular Surgery)
DX: I35.1 Nonrheumatic aortic (valve) insufficiency (principal)

== ENCOUNTER → 2018-09-25 07:41 | Outpatient (CLI) | payer MEDICARE, BC ==
[2018-06-11 09:40] VITALS: BMI 28.6
--- NOTE | 2018-10-06 13:55 | EC ---
PATIENT:RHIANNON SMITH DATE OF SERVICE: 09/25/18 SEX: F MEDICAL RECORD: [id number] DATE OF : [birth year] [facility] AGE OF PATIENT: 73 ADMISSION DATE: 09/25/18 REFERRING PHYSICIAN: INTERPRETING PHYSICIAN: ERIN ALLRED MD ECHOCARDIOGRAM REPORT ECHO CHARGES 4 ECHO COMPLETE Date: 09/25/18 CLINICAL DIAGNOSIS: ARRHYTHMIAS/AVR/A-FIB/ CARDIOMYOPATHY H/O HTN ECHOCARDIOGRAPHIC MEASUREMENTS (adult normal given) AC root (d.<3.7cm) 4.1 cm LV Septum d (<1.2 cm> 1.4 cm Valve Excursion 1.3 cm LV Septum (systole) 1.7 cm Left Atria (s.<4.0cm> 3.2 cm LVPW d(<1.2cm) 1.2 cm RV (d.<2.3cm) 2.3 cm LVPW (sytole) 1.6 cm LV diastole(<5.6CM) 5.2 cm MV E-F(>70mm/sec) cm LV systole 3.5 cm LVOT Diameter 1.9 cm MV exc.(>10mm) cm Est.ejection fraction (50-75%) % DOPPLER: LVIT cm/sec A 67.0 cm/sec E 55.0 cm/sec LA cm/sec RVSP 27.0 mmHg LVOT 73.0 cm/sec AOP1/2T m/s Asc. Ao 182 cm/sec RVOT 49.0 cm/sec RA cm/sec PA 60.0 cm/sec AV Gradient Peak 13.2 mmHg AV Mean 7.2 mmHg AV Area 1.2 cm MV Gradient Peak 2.9 mmHg MV Mean 1.2 mmHg MV Area cm COMMENTS: OP - HC Benefits Processor: 1 VITALIY LUIZ Principal Statistical Scientist: 3 Dr. Degroot TAPE# PACS Pericardial Effusion N DATE OF SERVICE: Adequate 2D echo, color flow, spectral Doppler, and M-mode. LVH is present. LV internal dimensions are normal. LV is mildly globally hypokinetic with more marked septal hypokinesis consider postop valve state. Overall, function reduced at 40% to 45%. Tissue prosthetic aortic valve is noted with acceptable Doppler velocity, no more than mild AI. Left atrium is normal at 3.2 cm. Mitral valve shows no prolapse. Mild MR. Right-sided chambers are grossly normal. Mild TR. ECHOCARDIOGRAM REPORT [id number] LUISRHIANNON L TRANSINT:[id number] Voice Confirmation ID: [id number] DOCUMENT ID: [id number] ERIN ALLRED MD at 1355 CC: [id number] DICTATION DATE: 09/27/18 1136 ELECTRIC PLATER: 09/27/18 2309 DEP CLI 09/25/18 [place] [id number] [place] [address]
== END | disposition home or self-care (01) ==
LOC: D.HCCARDIO 07:41
PROVIDERS: ATTEND Internal Medicine Interventional Cardiology
DX: I48.91 Unspecified atrial fibrillation (principal); I10 Essential (primary) hypertension; I42.9 Cardiomyopathy, unspecified

== ENCOUNTER → 2019-07-06 09:44 | Outpatient (CLI) | payer MEDICARE, BC ==
[2018-06-11 09:40] VITALS: BMI 28.6
--- NOTE | 2019-07-08 08:16 | EC ---
PATIENT:RHIANNON SMITH DATE OF SERVICE: 07/06/19 SEX: F MEDICAL RECORD: [id number] DATE OF : 45 LOCATION:[facility] AGE OF PATIENT: 74 ADMISSION DATE: 07/06/19 REFERRING PHYSICIAN: INTERPRETING PHYSICIAN: ERIN ALLRED MD ECHOCARDIOGRAM REPORT ECHO CHARGES 4 ECHO COMPLETE Date: 07/06/19 CLINICAL DIAGNOSIS: AORTIC VALVE DISORDER/ THORACIC ANEURYSM H/O AVR ECHOCARDIOGRAPHIC MEASUREMENTS (adult normal given) AC root (d.<3.7cm) 4.2 cm LV Septum d (<1.2 cm> 1.3 cm Valve Excursion 1.6 cm LV Septum (systole) 1.7 cm Left Atria (s.<4.0cm> 3.6 cm LVPW d(<1.2cm) 1.1 cm RV (d.<2.3cm) 2.1 cm LVPW (sytole) 1.7 cm LV diastole(<5.6CM) 4.4 cm MV E-F(>70mm/sec) cm LV systole 2.4 cm LVOT Diameter 2.1 cm MV exc.(>10mm) cm Est.ejection fraction (50-75%) % DOPPLER: LVIT cm/sec A 45.0 cm/sec E 58.0 cm/sec LA cm/sec RVSP 26.0 mmHg LVOT 67.0 cm/sec AOP1/2T m/s Asc. Ao 192 cm/sec RVOT 46.0 cm/sec RA cm/sec PA 54.0 cm/sec AV Gradient Peak 15.0 mmHg AV Mean 8.1 mmHg AV Area 1.1 cm MV Gradient Peak 4.3 mmHg MV Mean 1.5 mmHg MV Area cm COMMENTS: Tax Assistant: 1 VITALIY MONTALVOOE Land Degradation Analyst: 3 Dr. Degroot TAPE# PACS Pericardial Effusion N DATE OF SERVICE: Borderline LVH. LV internal dimensions are normal. Mild LV hypokinesis with LV function appears to be lower limits of normal at 50%. Prosthetic tissue aortic valve is noted with acceptable Doppler velocity and no more than a trace aortic insufficiency. The left atrium is normal. Mitral valve appears normal with no evidence of prolapse. Mild MR. Right-sided chamber is grossly normal. Mild TR. ECHOCARDIOGRAM REPORT [id number] RHIANNON SMITH TRANSINT:[id number] Voice Confirmation ID: [id number] DOCUMENT ID: [id number] ERIN ALLRED MD at 0816 CC: [id number] DICTATION DATE: 07/06/191108 DEALER SALES MANAGER: 07/06/19 1806 DEP CLI 07/06/19 [place] [id number] [place] [id number]
== END | disposition home or self-care (01) ==
LOC: D.ECHO 09:44
PROVIDERS: ATTEND Thoracic Surgery (Cardiothoracic Vascular Surgery)
DX: I35.9 Nonrheumatic aortic valve disorder, unspecified (principal); I71.2 Thoracic aortic aneurysm, without rupture

== ENCOUNTER → 2019-09-29 09:38 | Outpatient (CLI) | payer MEDICARE, BC ==
[2018-06-11 09:40] VITALS: BMI 28.6
--- NOTE | 2019-10-01 15:26 | EC ---
PATIENT:RHIANNON SMITH DATE OF SERVICE: 09/29/19 SEX: F MEDICAL RECORD: [id number] DATE OF : 45 [facility] AGE OF PATIENT: 74 ADMISSION DATE: 09/29/19 REFERRING PHYSICIAN: INTERPRETING PHYSICIAN: ERIN ALLRED MD ECHOCARDIOGRAM REPORT ECHO CHARGES 4 ECHO COMPLETE Date: 09/29/19 CLINICAL DIAGNOSIS: AORTIC VALVE REPLACEMENT ECHOCARDIOGRAPHIC MEASUREMENTS (adult normal given) AC root (d.<3.7cm) 3.5 cm LV Septum d (<1.2 cm> 1.3 cm Valve Excursion 1.3 cm LV Septum (systole) 1.5 cm Left Atria (s.<4.0cm> 3.8 cm LVPW d(<1.2cm) 1.4 cm RV (d.<2.3cm) 3.3 cm LVPW (sytole) 1.7 cm LV diastole(<5.6CM) 4.1 cm MV E-F(>70mm/sec) cm LV systole 2.6 cm LVOT Diameter 1.9 cm MV exc.(>10mm) 1.3 cm Est.ejection fraction (50-75%) % DOPPLER: LVIT cm/sec A 67.0 cm/sec E 51.0 cm/sec LA cm/sec RVSP 28 mmHg LVOT 88 cm/sec AOP1/2T m/s Asc. Ao 141 cm/sec RVOT 46 cm/sec RA cm/sec PA 134 cm/sec AV Gradient Peak 7.98 mmHg AV Mean 4.62 mmHg AV Area 1.9 cm MV Gradient Peak 3.30 mmHg MV Mean 1.45 mmHg MV Area cm COMMENTS: Delivery Driver Assistant: 2 OBINNA FORBES Bell Person: 3 Dr. Degroot TAPE# PACS Pericardial Effusion N DATE OF SERVICE: Adequate 2D, color flow imaging, spectral Doppler, and M-mode. LVH is present. LV internal dimensions are normal. Wall motion is normal. EF is greater than or equal to 55%. Tissue prosthetic aortic valve is noted with good Doppler velocity and no significant AI. Left atrium is normal. Mitral valve showed no prolapse. Trace MR. Right-sided chambers are grossly normal. Mild TR. ECHOCARDIOGRAM REPORT [id number] RHIANNON SMITH TRANSINT:[id number] Voice Confirmation ID: [id number] DOCUMENT ID: [id number] ERIN ALLRED MD at 1526 CC: [id number] DICTATION DATE: 09/29/19 1555 JAVA USER INTERFACE DEVELOPER: 09/29/19 2301 DEP CLI 09/29/19 [facility] [address] [place] [address]
== END | disposition home or self-care (01) ==
LOC: D.HCCECHO 09:38
PROVIDERS: ATTEND Internal Medicine Interventional Cardiology
DX: I47.1 Supraventricular tachycardia (principal)